=== PATIENT | female | born 1950 | race Caucasian/White ===

== ENCOUNTER 2017-11-04 09:23 | Inpatient (IN) | payer OTHER ==
[~2017-11-04] VITALS: Ht 152.4 cm; Wt 59.0 kg
[~2017-11-04 09:23] MED LIST: CEFADROXIL500 MG PO; HYZAAR 100-251 UDTAB PO; MEFENAMIC ACID PO; PERCOCET 5/3251 TAB PO; TENORMIN50 M1 PO; XARELTO10 MG PO; [UNRECOGNIZED DRUG - OTHER] PO
[2017-11-04] MEDS ORDERED: JANUMET 50-1,01 EACH PO (10:15)
[2017-11-04] MEDS ORDERED: HYDRALAZINE HCL10 MG PO (10:16)
[2017-11-04] MEDS ORDERED: TRAMADOL HCL50 MG PO (10:17)
[2017-11-04] MEDS ORDERED: AMBIEN10 MG PO (10:17)
[2017-11-04] MEDS ORDERED: XANAX XR2 MG PO (10:18)
[2017-11-12] MEDS ORDERED: PERCOCET 5-3251 EACH PO (13:01)
[2017-11-12] MEDS ORDERED: XARELTO10 MG PO (13:01)
[2017-11-12] MEDS ORDERED: DUI500 PO (13:01)
== END 2017-11-12 16:02 | DRG 470 ==
LOC: EDSTATUS 12:00 → ADM 12:00 → SURH 11-10 07:00 → O/R 11-10 09:22 → SURH 11-10 09:22 → MEDI 11-10 15:33 → SURH 11-10 15:33
PROVIDERS: Orthopaedic Surgery
PROC: 0MNP0ZZ Release Left Knee Bursa and Ligament, Open Approach (ICD-10-PCS; 2017-11-10)
PROC: 0SRD0J9 Replacement of Left Knee Joint with Synthetic Substitute, Cemented, Open Approach (ICD-10-PCS; principal; 2017-11-10 07:00)
PROC: 4A12X4Z Monitoring of Cardiac Electrical Activity, External Approach (ICD-10-PCS; 2017-11-11)
DX: M17.12 Unilateral primary osteoarthritis, left knee (principal); D62 Acute posthemorrhagic anemia; M81.0 Age-related osteoporosis without current pathological fracture; I10 Essential (primary) hypertension; E11.9 Type 2 diabetes mellitus without complications; F41.8 Other specified anxiety disorders; M06.89 Other specified rheumatoid arthritis, multiple sites